=== PATIENT | female | born 1990 | race Caucasian/White ===

== ENCOUNTER 2024-10-11 18:22 | Emergency (ER) | payer OTHER, SELFPAY ==
[2024-10-11 18:24] VITALS: BP 124/64
[2024-10-11 18:49] LABS: % Basophils 0.2 % (0-2); % Eosinophils 0.2 % (0-6); % Immature Granulocytes 0.3 % (0-0.5); % Lymphocytes 3.3 % (20.5-51.1); % Monocytes 3.4 % (1.7-9.3); % Neutrophils 92.6 % (42.2-75.2); Absolute Lymphocytes 0.4 10^3/uL (1.2-3.4); Absolute Monocytes 0.4 10^3/uL (0.1-0.6); Absolute Neutrophils 11.2 10^3/uL (1.4-6.5); Hemoglobin 13.8 g/dL (12.0-16.0); Mean Corp Hgb Conc. 33.7 g/dL (33.0-37.0); Mean Corpuscular Hgb 30.3 pg (27.0-31.0); Mean Corpuscular Volume 89.9 fL (81.0-99.0); Mean Platelet Volume 9.3 fL (7.4-10.4); Nucleated Red Blood Cells % 0 %; Platelet Count 178 10^3/uL (130-400); Red Blood Cell Count 4.56 10^6/uL (4.20-5.40); Red Cell Dist. Width 12.5 % (11.5-14.5); White Blood Cell Count 12.1 10^3/uL (4.8-10.8)
[2024-10-11 19:04] LABS: HCG, Serum Qualitative Screen Negative
[2024-10-11 19:14] LABS: ALT (SGPT) 33 U/L (0-35); AST (SGOT) 37 U/L (14-36); Albumin 4.2 g/dl (3.5-5.0); Alkaline Phosphatase 47 U/L (38-126); Blood Urea Nitrogen 18 mg/dl (7-17); Calcium 9.1 mg/dl (8.4-10.2); Carbon Dioxide 26 mmol/L (22-30); Chloride 105 mmol/L (98-107); Glucose 120 mg/dl (70-99); Lipase 39 U/L (23-300); Potassium 4.3 mmol/L (3.5-5.1); Sodium 140 mmol/L (135-145); Total Bilirubin 1.8 mg/dl (0.2-1.3); Total Protein 6.3 g/dl (6.3-8.2); eGFR > 60.00
[2024-10-11] MEDS: ZOFRAN 4 MG IV ×2 (19:14→21:23)
[2024-10-11] MEDS: NSS 1000 IV (19:14)
[2024-10-11] MEDS: PROTONIX IV 40 MG IV (19:15)
[2024-10-11] MEDS: TORADOL 30 MG IV (20:06)
[2024-10-11 20:08] VITALS: BP 104/62
--- NOTE | 2024-10-11 20:42 | ED.GENMED ---
History of Present Illness
General
Chief Complaint: Abdominal Pain
Source: patient
Exam Limitations: none
Time Seen by Provider: 10/11/24 18:58
Nursing documentation reviewed up to this point in time: agreed with
History of Present Illness
History of Present Illness:
Patient presents to ED secondary to recurrent headache, associated with nausea and vomiting, starting 2 days ago. Since then, patient has not been able to keep anything down, and has started to develop abdominal cramping sensation as well. Patient
is unsure whether or not symptoms related to headache or she may be experiencing food poisoning, as she has been in contact with multiple people who are experiencing similar GI symptoms. Denies fever or chills. Denies dizziness. Denies shortness
of breath or chest pain. Denies diarrhea. Denies recent travel. Patient has had extensive workup for her headache couple years ago, including imaging studies, which were normal.
Past History
Past History
ED Past Medical History: Psychiatric
ED Past Surgical History: Other (cosmetic)
Social History
Tobacco: Non-smoker
Alcohol: None
Drug: None
Personal:
Living: with family
Family History
Family History: Negative Diabetes, Hypertension or CAD
Review of Systems
Review of Systems
Allergies reviewed?: Yes
All Other Systems: ROS reviewed and negative except as documented in HPI and ROS
Constitutional: Reports no symptoms
Respiratory: Reports no symptoms
Cardiac: Reports no symptoms
ABD/GI: Reports abdominal pain, nausea and vomiting; Denies diarrhea
Musculoskeletal: Reports no symptoms
Skin: Reports no symptoms
Neurological: Reports headache
Phy Exam
Physical Exam
Physical Exam:
Physical Exam
General: mild distress, not acutely ill. afebrile
Head: nc/at. eomi
Neck: supple. no meningeal signs.
Heart: s1/s2 regular rate and rhythm, no murmur. equal radial pulses.
Lungs: no acute respiratory distress. clear bilaterally
Abdomen: normal bowel sounds. not tender.
Neuro: alert and oriented. no focal neurological deficits
Skin: no rash
Psychiatric: well kept. interactive and cooperative
Extremities: no edema. no calf tenderness.
Course
Orders/Labs/Results
Orders:
Orders
10/11/24 18:41
Test Result ONCE
10/11/24 18:42
Complete Blood Count/With Diff Urgent
Comprehensive Metabolic Panel Urgent
HCG, Serum Qualitative Screen Urgent
Lipase Urgent
10/11/24 19:11
0.9% Sodium Chloride 1000 ml [Nss] 1,000 ml IV BOLUS
Ondansetron Injectable [Zofran] 4 mg .ROUTE .STK-MED ONE
Ondansetron Injectable [Zofran] 4 mg IV NOW STA
Pantoprazole [Protonix IV] 40 mg .ROUTE .STK-MED ONE
Pantoprazole [Protonix IV] 40 mg IV NOW STA
10/11/24 20:03
Ketorolac [Toradol] 30 mg IV NOW STA
10/11/24 21:20
Ondansetron Injectable [Zofran] 4 mg IV NOW STA
10/11/24 21:59
Ondansetron Orally Disint [Zofran Odt (Orally Disintegrating)] 4 mg PO NOW STA
Abnormal Lab Results
10/11/24
18:42
WBC 12.1 H 10^3/uL
(4.8-10.8)
Absolute Neuts (auto) 11.2 H 10^3/uL
(1.4-6.5)
Absolute Lymphs (auto) 0.4 L 10^3/uL
(1.2-3.4)
Neutrophils % 92.6 H %
(42.2-75.2)
Lymphocytes % 3.3 L %
(20.5-51.1)
BUN 18 H mg/dl
(7-17)
Glucose 120 H mg/dl
(70-99)
Total Bilirubin 1.8 H mg/dl
(0.2-1.3)
AST 37 H U/L
(14-36)
10/11/24 18:42
10/11/24 18:42
Vital Signs
Initial and Last Documented VS:
Initial Vital Signs
Temp Pulse Resp BP Pulse Ox
98.6 F 106 16 124/64 100
10/11/24 18:24 10/11/24 18:24 10/11/24 18:24 10/11/24 18:24 10/11/24 18:24
Last Documented Vital Signs
Temp Pulse Resp BP Pulse Ox
98.8 F 92 16 97/59 98
10/11/24 20:08 10/11/24 21:53 10/11/24 21:53 10/11/24 21:53 10/11/24 21:53
MDM/Problems Addressed
MDM/Problems Addressed:
Patient reports improvement in symptoms after treatment. Mild leukocytosis noted, likely reactive, without any evidence of focal infection. In addition, patient also has mildly elevated bilirubin, which patient states that she has had before.
Exam findings inconsistent with obstructing biliary disease. As such, patient will be discharged home at this time, with recommendation to follow-up PCP for reevaluation, along with continued hydration. Patient return to ED with worsening
symptoms. Patient otherwise is afebrile, helically stable, and nontoxic-appearing, at time of discharge, to the care of her spouse
*Critical Care Note
Total Time (30-74mins, 75-104mins- exclusive of procedures): Not Applicable
ED Attending Note
-
Portions of this chart may have been created with voice recognition software.� Occasional wrong word or��sound alike� substitutions may have occurred due to the inherent limitations of voice recognition software.
Discharge Plan
Departure
Patient Disposition: Home (Routine Discharge)
Date of Disposition: 10/11/24
Time of Disposition: 21:59
Patient with high blood pressure during this ER visit?: Yes
Condition: Good
Discharge Problem:
Headache
Instructions: Headache, Adult ED
Prescriptions:
New
ondansetron 4 mg Tablet,Disintegrating
4 mg PO TIDPRN PRN (Reason: nausea/vomiting) Qty: 12 0RF
Referrals:
Malina Cornell MD [Family Provider] -
Stand Alone Forms: Return to Work
Activity Restrictions/Additional Instructions:
As discussed, please follow-up with your primary care physician with any further concerns. Your prescription has been sent electronically to the [facility] pharmacy in [place].
Interventions
Interventions:
*Risk Screen - Suicide Last Done: 10/11/24 18:24
*General Assessment Last Done: 10/11/24 18:24
*Neglect/Abuse Screening Last Done: 10/11/24 18:24
ED- Fall Risk Assessment Last Done: 10/11/24 22:17
*ED COVID-19 Vaccine History Last Done: 10/11/24 19:18
*Nursing Disposition Last Done: 10/11/24 22:17
AB-Ulnvpb-Hihjwvvwpg Assessment Last Done: 10/11/24 18:37
Discharge Date and Time
Discharge Date/Time: 10/11/24 22:18
Print Language: PALAUAN
[2024-10-11 21:53] VITALS: BP 97/59
[2024-10-11] MEDS: ZOFRAN ODT (ORALLY DISINTEGRATING) 4 MG PO (22:08)
== END 2024-10-11 22:18 | disposition home or self-care (01) ==
LOC: EMR 18:22
PROVIDERS: EMERGENCY PHYSICIAN Emergency Medicine; FAMILY PHYSICIAN Family Medicine
DX: R51.9 Headache, unspecified (principal); R11.2 Nausea with vomiting, unspecified; R10.9 Unspecified abdominal pain
CPT/HCPCS: 96374; 96375; 96376; 96361; 99284; 80053; 83690; 84703; 85025